=== PATIENT | male | born 1980 | race Caucasian/White ===

== ENCOUNTER 2020-10-15 18:42 | Inpatient (IN) | payer OTHER ==
[~2020-10-15] VITALS: Ht 188 cm; Wt 165.6 kg
[2020-10-15 18:53] VITALS: BP 108/75
[2020-10-15 20:07] LABS: ABSOLUTE LYMPHOCYTES 1.1 thou/uL (0.8-5.3); ABSOLUTE MONOCYTES 0.2 thou/uL (0.0-1.2); ABSOLUTE NEUTROPHILS 3.4 thou/uL (1.6-8.1); BASOPHILS 0.8 %; HEMOGLOBIN 16.3 gm/dL (14.0-18.0); LYMPHOCYTES 22.9 %; MCH 29.3 pg (26.0-34.0); MCHC 33.2 g/dL (28.0-37.0); MCV 88.2 fL (80.0-100.0); MONOCYTES 5.1 %; MPV 8.2 fl. (7.2-11.1); NUCLEATED RBCS 0 /100WBC; PLATELET COUNT* 147 thou/uL (150-400); POLYS 71.2 %; RBC 5.55 mil/uL (4.50-6.00); RDW-CV 13.9 % (10.5-14.5); WBC 4.8 thou/uL (4.0-11.0)
[2020-10-15 20:17] LABS: CALCIUM 8.2 mg/dL (8.5-10.1); CREATININE 1.6 mg/dL (0.6-1.3); POTASSIUM 3.8 mmol/L (3.5-5.1)
[2020-10-16] VITALS: BP 108/68
[2020-10-16 03:58] VITALS: BP 104/42
[2020-10-16 10:10] VITALS: BP 122/80
--- NOTE | 2020-10-16 10:12 | EKG ---
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
[2020-10-16 10:14] LABS: ABSOLUTE LYMPHOCYTES 1.1 thou/uL (0.8-5.3); ABSOLUTE MONOCYTES 0.1 thou/uL (0.0-1.2); ABSOLUTE NEUTROPHILS 2.3 thou/uL (1.6-8.1); BASOPHILS 0.2 %; HEMATOCRIT 45.2 % (42.0-52.0); HEMOGLOBIN 15.2 gm/dL (14.0-18.0); LYMPHOCYTES 30.1 %; MCH 29.3 pg (26.0-34.0); MCHC 33.6 g/dL (28.0-37.0); MCV 87.3 fL (80.0-100.0); MONOCYTES 3.2 %; MPV 8.5 fl. (7.2-11.1); NUCLEATED RBCS 0 /100WBC; PLATELET COUNT* 161 thou/uL (150-400); POLYS 66.5 %; RBC 5.18 mil/uL (4.50-6.00); RDW-CV 13.5 % (10.5-14.5); WBC 3.5 thou/uL (4.0-11.0)
[2020-10-16 10:23] LABS: ALBUMIN 3.1 g/dL (3.4-5.0); CALCIUM 7.9 mg/dL (8.5-10.1); CREATININE 1.1 mg/dL (0.6-1.3); POTASSIUM 4.1 mmol/L (3.5-5.1); TOTAL BILIRUBIN 0.6 mg/dL (<0.1-1.0); TOTAL PROTEIN 7.3 g/dL (6.4-8.2)
[2020-10-16 10:34] LABS: URINE BILIRUBIN NEGATIVE (Negative); URINE BLOOD 3+ (Negative); URINE CLARITY CLEAR; URINE COLOR YELLOW; URINE GLUCOSE-RANDOM NEGATIVE (Negative); URINE KETONES 1+ (Negative); URINE LEUKOCYTES-REFLEX NEGATIVE (Negative); URINE NITRITE-REFLEX NEGATIVE (Negative); URINE PROTEIN 1+ (Negative); URINE UROBILINOGEN 0.2 E.U./dl (0.2-1.0)
[2020-10-16 10:53] LABS: SQUAMOUS 4-10 Moderate /LPF (0-3); URINE WBC-REFLEX 0-5 Rare /HPF (0-5)
[2020-10-16 10:54] LABS: BACTERIA-REFLEX 1-9 Few /HPF (None Seen); CASTS None Seen /LPF (None Seen); CRYSTALS None Seen /LPF (None Seen); MUCUS None Seen strn/LPF (None Seen)
[2020-10-16 11:29] VITALS: BP 122/80
[2020-10-16 12:00] VITALS: BP 112/79
[2020-10-16 16:00] VITALS: BP 121/65
[2020-10-17] VITALS (7 sets, daily range): BP systolic 115–133; BP diastolic 64–81
[2020-10-17 06:13] LABS: ABSOLUTE LYMPHOCYTES 1.2 thou/uL (0.8-5.3); ABSOLUTE MONOCYTES 0.4 thou/uL (0.0-1.2); ABSOLUTE NEUTROPHILS 8.2 thou/uL (1.6-8.1); BASOPHILS 0.1 %; HEMATOCRIT 44.9 % (42.0-52.0); HEMOGLOBIN 14.9 gm/dL (14.0-18.0); LYMPHOCYTES 12.4 %; MCH 28.9 pg (26.0-34.0); MCHC 33.2 g/dL (28.0-37.0); MCV 87.1 fL (80.0-100.0); MONOCYTES 4.3 %; MPV 8.7 fl. (7.2-11.1); NUCLEATED RBCS 0 /100WBC; PLATELET COUNT* 179 thou/uL (150-400); POLYS 83.2 %; RBC 5.16 mil/uL (4.50-6.00); RDW-CV 14.1 % (10.5-14.5); WBC 9.9 thou/uL (4.0-11.0)
[2020-10-17 06:24] LABS: CALCIUM 8.2 mg/dL (8.5-10.1); CREATININE 1.1 mg/dL (0.6-1.3)
--- NOTE | 2020-10-17 11:29 | NUR ---
The patient is alert. Able to make needs known. SR on the monitor. Call light within reach. UP ad eduar.
[2020-10-17] MEDS ORDERED: PREDNISONE 20 M20 MG PO (14:37)
[2020-10-17] MEDS ORDERED: CEFDINIR300 MG PO (14:40)
--- NOTE | 2020-10-17 15:12 | NUR ---
Arrived at 1440.Alert and orienated x4. Transfers x1. Able to make needs known. SR with BBB on the monitor. Call light within reach.
--- NOTE | 2020-10-17 15:27 | NUR ---
Pt discharging to home today, needs home o2, faxed referral to [facility]. Normally independent
--- NOTE | 2020-10-17 15:56 | NUR ---
Ex ox completed too late today, [facility] to 2pm, Pt unable to dc today with home o2. [facility], , Pulm to review in the AM and will let CM know which DME company can be used. Updated Dr and nurse. Pt is A&O. Resides at home. Independent. No DME. No hx of HH or SNF>
[2020-10-18] VITALS: BP 123/79
[2020-10-18 04:00] VITALS: BP 113/67
--- NOTE | 2020-10-18 06:42 | NUR ---
Pt alert and oriented. Denies pain, afebrile. VSS. Pt on room air through night with adequate oxygenation. Pt. ad eduar in room. Pt. tolerating regular diet. Pt. voiding with no issues. Plan for DC to home today. All questions and concerns addressed. Will continue to monitor.
--- NOTE | 2020-10-18 11:06 | NUR ---
THE PATIENT IS ALERT. ABLE TO MAKE NEEDS KNOWN. DENIES CP OR SOB. CALL LIGHT WITHIN REACH.
[2020-10-18 12:30] VITALS: BP 120/81
--- NOTE | 2020-10-18 12:42 | NUR ---
Nutrition: Pt admitted to COVID unit for COVID exposure. Consult received for "other." Pt is tolerating regular diet. BG 116, albumin 3.1 Pt doesn't require O2 at rest, only on exertion, per chart review. Wt: 365#. Pt is discharging today. No nutrition interventions needed. Low risk.
--- NOTE | 2020-10-18 14:19 | NUR ---
Discharge instructions given.Predinsone 40mg po daily x 10 days called to [facility]. No questions voiced.
--- NOTE | 2020-10-18 15:18 | NUR ---
[facility] o[facility], O2 provided by [facility] [phone]. [place]
== END 2020-10-18 14:30 | disposition home or self-care (01) | DRG 177 ==
LOC: M.ERS 18:42 → M.TBA-ER 22:10 → M.ORTHSURG 10-16 09:16
PROVIDERS: Emergency Medicine; Internal Medicine; ADMIT Internal Medicine; ATTEND Internal Medicine
PROC: XW033E5 Introduction of Remdesivir Anti-infective into Peripheral Vein, Percutaneous Approach, New Technology Group 5 (ICD-10-PCS; principal; 2020-10-16)
DX: U07.1 COVID-19 (principal); J96.01 Acute respiratory failure with hypoxia; J12.82 Pneumonia due to coronavirus disease 2019; N17.0 Acute kidney failure with tubular necrosis; R65.10 Systemic inflammatory response syndrome (SIRS) of non-infectious origin without acute organ dysfunction; Z68.42 Body mass index [BMI] 45.0-49.9, adult; E66.01 Morbid (severe) obesity due to excess calories; Z86.14 Personal history of Methicillin resistant Staphylococcus aureus infection